=== PATIENT | female | born 1960 | race Caucasian/White ===

== ENCOUNTER 2017-01-22 22:22 | Emergency (ER) | payer BC ==
[~2017-01-22] VITALS: Ht 167.6 cm; Wt 61.3 kg
[2017-01-22 22:23] VITALS: Ht 167.6 cm; Wt 61.3 kg
--- NOTE | 2017-01-22 22:32 | ERPDOC ---
Departure Disposition Decision Date: January 22, 2017 Disposition Decision Time: 22:34 Disposition: 01 DISCHARGED HOME, SELF-CARE Impression Impression Impression: Primary Impression: Foreign body forearm Severity: Mild Condition: Improved Seen By: Physician only Patient Instructions: Puncture Wound (DC) Problems/Meds/Labs Reviewed?: Yes Medications reviewed and manag: Yes Additional Instructions: Take Keflex 500 mg 3 times daily for 5 days to prevent infection Wash wound daily with mild soap and water, cover with a dry gauze bandage daily until healed Return to ER or see your doctor for any worsening in pain, redness, or milky discharge Follow up care ordered?: Yes Mental Status: Alert Scripts Cephalexin (Keflex) 500 Mg Capsule 1 CAP PO TID, #15 CAP Prov: RENEE BUTLER MD 01/22/17 HPI General Chief Complaint: Upper Extremity Injury Stated Complaint: FISH HOOK IN RT ARM Time Seen by Provider: 22:27 Source: patient, family Exam Limitations: no limitations HPI Hand/Forearm Initial Comments Patient was caring several fishing poles, when the door slammed on her arm and embedded one of the large's at the AC of the right arm. This occurred approximately one and half hours ago Tetanus is up-to-date one and a half years ago Occurred At: home Onset: Rapid Duration: 1-3 hrs Severity: mild Location: right: forearm 1 - Embedded fish hook Past History Past Medical History Psychological: ADHD Social History Tobacco Usage: smoke Alcohol Usage: none Drug Usage: none Record Review Pertinent history updated: Yes Review of Systems Constitutional Constitutional: DENIES: appetite decrease, appetite increase, chills, dizziness , fever, weakness ENMT Ears: DENIES: pain Hearing: DENIES: hearing loss, tinnitus Balance: DENIES: vertigo Mouth/Throat: DENIES: change in swallowing, change in voice, hoarsness, painful swallowing, sore throat Cardiovascular Cardiac: DENIES: chest pain, dyspnea on exertion Rhythm/Rate: DENIES: irregular beat, palpitations, tachycardia Vascular: DENIES: pedal edema Pulmonary Respiratory: DENIES: cough, dyspnea, pleuritic chest pain GI Upper Abdomen: DENIES: dysphagia, heartburn/indigestion, nausea, pain, vomiting Lower Abdomen: DENIES: blood in stool, constipation, diarrhea, pain General: DENIES: burning, dysuria, frequency, pain, urgency Musculoskeletal General: DENIES: cramps, joint pain, joint swelling, pain, weakness Integumentary Skin: DENIES: rash, sores Neurological General: DENIES: headache, numbness, tingling, vertigo, weakness Exam General General Nourishment: well nourished, well developed, appears stated age, no acute distress General Body Habitus: well groomed [employer] Hand/Forearm Comments Stark embedded in the right AC Neurologic RN Documented GCS Eye Opening: Verbal: Motor: Total: Progress Progress Progress Stark removed easily with string maneuver, wound then cleansed and dressed, patient started on Keflex for 5 days RENEE BUTLER MD January 22, 2017 22:31
[2017-01-22] MEDS ORDERED: CEPH-583 PO (22:35)
[2017-01-22] MEDS ORDERED: ALPR0.25 PO (22:39)
[2017-01-22 22:45] VITALS: BP 123/65; PULSE 84; RESP 20; TEMP 97.7; O2SAT 99
[2017-01-22] MEDS ORDERED: CEPHALEXIN 500 MG CAPSULE PO ONE (22:45)
[2017-01-22] MEDS ORDERED: NEOMYCIN/POLYM/BACITR OINT PACKET TOP ONE (22:45)
--- NOTE | 2017-01-22 22:45 | NUR ---
DEPART PT GIVEN DI FOR PUNCTURE WOUND, KEFLEX, F/U. VERBALIZES UNDERSTANDING. QUESTIONS ASKED/ANSWERED - DENIES FURTHER QUESTIONS/NEEDS AT THIS TIME. PERSONAL BELONGINGS GATHERED PT ESCORTED/AMBULATED TO ED EXIT - GAIT STABLE, NO SIGN OF DISTRESS.
== END 2017-01-22 22:45 | disposition home or self-care (01) ==
LOC: ED 22:22
DX: S50.851A Superficial foreign body of right forearm, initial encounter (principal); W45.8XXA Other foreign body or object entering through skin, initial encounter; Y93.89 Activity, other specified; Y92.008 Other place in unspecified non-institutional (private) residence as the place of occurrence of the external cause; Y99.8 Other external cause status